=== PATIENT | female | born 1995 | race Caucasian/White ===

== ENCOUNTER 2017-11-11 11:36 | Emergency (ER) | payer MEDICAID ==
[2017-11-11] MEDS ORDERED: NS 1,000 ML IV ONE (11:40)
--- NOTE | 2017-11-11 12:41 | EDPHY ---
H & P Stated Complaint: Vaginal bleeding and lower abdominal cramping x 3 days. Time Seen by Provider: 11/11/17 11:39 HPI/ROS: This patient presents with 1st trimester vaginal bleeding. By dates she estimates that she has a proximal 6 weeks gestation. Her vaginal bleeding started 3 days ago. She presented to [facility] Emergency Department where she had a obstetrical ultrasound that revealed tiny 2 mm cystic structure in the fundus of the endometrium-unclear if this was tiny intrauterine gestational sac or not. They did not confirm intrauterine gestational sac or pole. Normal evaluation of the ovaries at that time. This is performed on 11/09/2017 we have a copy of that ultrasound read that I reviewed. Review of that visit reveals a normal appearing urinalysis with the exception of minimal RBCs. Her CBC was normal at that time, basic metabolic panel normal and her quant HCG levels 196. She is Rh positive. She was instructed to follow up with emergency department for recheck quant HCG level today. She reports that she started developing lightheadedness this morning that is worse when she standing. She also reports 5/10 suprapubic cramping that has been typical since the onset of symptoms for her occasionally with brief episodes up to 8/10 but currently 5/ 10. She feels improved when she lies supine compared to when she is upright or walking. No other exacerbating for triggers for the cramping. She also has mild nausea but no vomiting. She reports that she has been going through about 4 5 pads a day in terms of vaginal bleeding with onset of blood clots associated with the bleeding over the past 2 days. No tissue was noted by the patient. ROS: Constitutional: No fevers. HEENT: No complaints pulmonary: She reports mild dyspnea this morning that she attributes to anxiety. Cardiovascular: Again lightheaded this morning. She has noticed heart palpitations or chest pain. GI: No upper belly pain. Again no vomiting. No diarrhea. Integumentary: No pallor or skin rash. No diaphoresis. : No dysuria, frequency urgency. Musculoskeletal: She reports bilateral low back pain to that feels like a muscular ache to her. 10 point ROS is otherwise negative. Source: Patient Exam Limitations: No limitations - Personal History LMP (Females 10-55): EDC: 09/25/17 Current Tetanus Diphtheria and Acellular Pertussis (TDAP): Yes Tetanus Vaccine Date: within 10 years - Medical/Surgical History Hx Asthma: No Hx Chronic Respiratory Disease: No Hx Diabetes: No Hx Cardiac Disease: No Hx Renal Disease: No Hx Cirrhosis: No Hx Alcoholism: No Hx HIV/AIDS: No Hx Splenectomy or Spleen Trauma: No Other PMH: Anxiety, depression - Family History Significant Family History: No pertinent family hx - Social History Smoking Status: Never smoked Alcohol Use: Rarely Drug Use: None Additional Social History: Here with her and 4-year-old son - Physical Exam Exam: Vital signs are notable for pulse of 107. Other vital signs are normal. General Appearance: Alert, no distress. Eyes: Pupils equal and round no pallor or injection. ENT, Mouth: Mucous membranes moist. Respiratory: There are no retractions, lungs are clear to auscultation. Cardiovascular: Mildly Tachycardic with no murmur gallop or rub Gastrointestinal: Patient has mild suprapubic tenderness with no guarding or rebound. No upper belly tenderness. No organomegaly. Back: No midline tenderness. No CVA tenderness. Neurological: GCS 15 Skin: Warm and dry, no rashes. Musculoskeletal: Neck is supple nontender. Extremities are symmetrical, full range of motion. Psychiatric: Mood and affect normal DIFFERENTIAL DIAGNOSIS: After history and physical exam differential diagnosis was considered for threatened miscarriage, miscarriage, ectopic Constitutional: Initial Vital Signs Temperature (C) 36.9 C 11/11/17 11:40 Heart Rate 107 H 11/11/17 11:40 Respiratory Rate 16 11/11/17 11:40 Blood Pressure 107/69 11/11/17 11:40 O2 Sat (%) 98 11/11/17 11:40 O2 Delivery Mode Room Air Allergies/Adverse Reactions: No Known Allergies Allergy (Verified 11/11/17 11:44) Home Medications: Medication Instructions Recorded Escitalopram Oxalate 11/11/17 Medical Decision Making ED Course/Re-evaluation: 1 L normal saline bolus with resolution of her tachycardia and lightheadedness. Patient declined analgesics or antiemetics. Labs: CBC is normal quant HCG is down from several 100 on her visit [facility] and records are reviewed to current of 40. I counseled regarding this. Urinalysis here is essentially normal today. Discussion: Patient presents with findings consistent with miscarriage with HCG decreasing appropriately for that diagnosis. She has mild cramping and she understands she can take ibuprofen Tylenol for that. She declined any analgesics here. Encouraged her to follow up with her family doctor for final HCG sometime the next 3-5 days and also provided the OBGYN on-call number should she have any ongoing concerns. She understands need to return emergency department should she develop severe abdominal pain bleeding or other concerns. - Data Points Laboratory Results: Laboratory Results 11/11/17 12:05 Medications Given: Discontinued Medications Sodium Chloride (Ns) 1,000 mls @ 0 mls/hr IV EDNOW ONE; Wide Open PRN Reason: Protocol Stop: 11/11/17 11:41 Last Admin: 11/11/17 12:13 Dose: 1,000 mls Point of Care Test Results: Urine Collection Date 11/11/17 Collection Time 12:13 HCG Results Negative Urine Dip Collection Date 11/11/17 Collection Time 12:13 Specific [place] (1.002-1.030) 1.005 PH (5.0-7.5) 6.5 Leukocytes (Negative) Negative Nitrites (Negative) Negative Protein (Negative) Negative Glucose (Negative) Negative Ketones (Negative) Negative Urobilnogen (0.2-1.0 EU) 0.2 Bilirubin (Negative) Negative Blood (Negative) 2+ Departure - Departure Disposition: Home, Routine, Self-Care Clinical Impression: Miscarriage Condition: Good Instructions: Miscarriage (ED) Additional Instructions: Diagnosis: Miscarriage Plan: Call your primary care physician and/or the OBGYN physician listed below to arrange follow-up appointment for sometime within the next week for a final quantitative HCG lab draw. Drink plenty fluids Ibuprofen and Tylenol for cramps if needed Return emergency department for any significant worsening despite the treatment plan Referrals: Beau Noel MD [Primary Care Provider] - As per Instructions Sylwia Basurto DO [Doctor of Osteopathy] - As per Instructions
[2017-11-11 13:15] LABS: PLATELET COUNT 219 10^3/uL (150-400)
[2017-11-11 14:33] VITALS: BP 104/71
== END 2017-11-11 14:33 | disposition home or self-care (01) ==
LOC: CED 11:36
DX: O03.9 Complete or unspecified spontaneous abortion without complication (principal); E86.9 Volume depletion, unspecified; Z3A.00 Weeks of gestation of pregnancy not specified

== ENCOUNTER → 2018-10-04 | Outpatient (CLI) | payer OTHER, MEDICAID | LOC: FIMAGING 10:07 | PROVIDERS: ATTEND Obstetrics & Gynecology | DX: Z34.82 Encounter for supervision of other normal pregnancy, second trimester (principal); Z3A.21 21 weeks gestation of pregnancy ==